=== PATIENT | male | born 2000 | race Caucasian/White ===

== ENCOUNTER 2019-03-21 04:40 | Emergency (ER) | payer OTHER ==
[~2019-03-21] VITALS: Ht 177.8 cm; Wt 65.9 kg
[2019-03-21 04:48] VITALS: TEMP 98.6
[2019-03-21] MEDS ORDERED: PROAIR HFA0.09 MG/AC IH (04:48)
[2019-03-21] MEDS ORDERED: PREDNISONE20 MG PO (05:47)
[2019-03-21 05:58] VITALS: BP 111/76; PULSE 87
== END 2019-03-21 06:00 | disposition home or self-care (01) ==
LOC: COL.ER 04:40
DX: J45.909 Unspecified asthma, uncomplicated (principal); Z87.891 Personal history of nicotine dependence